=== PATIENT | male | born 1970 | race Caucasian/White ===

== ENCOUNTER → 2019-03-08 | Day surgery (SDC) | payer OTHER ==
--- NOTE | 2019-03-09 16:48 | PATH ---
Cytology Non-Gynecological Report Patient Name: JOSHUA LACKEY [facility]. Rec. #: [id number] /Age/Gender: 1970 (Age: 48) / M Account: [id number] Location: RADIOLOGY INTER Taken: 03/08/2019 Received: 03/08/2019 Reported: 03/09/2019 Physicians: Faustina Hussein M.D. Specimen(s) Received RIGHT THYROID FNA Clinical History Right lobe, 1.0 x 1.2 x 1.1 cm Final Diagnosis THYROID, RIGHT, FINE NEEDLE ASPIRATION: SATISFACTORY FOR EVALUATION. 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 HURTHLE CELLS WITH MILD NUCLEAR ENLARGEMENT, GRANULAR CYTOPLASM, AND DISTINCT NUCLEOLI DISPERSED CLUSTERS, FRAGMENTS, AND SINGLE CELLS IN A BACKGROUND OF MINIMAL COLLOID. Comment: Although findings may represent a Hurthle cell nodule which may be seen in the setting of nodular goiter or chronic lymphocytic thyroiditis; a more significant follicular lesion cannot be completely ruled out. Suggest clinical/radiologic and serologic correlation. Electronically Signed Lyssa So M.D. Gross Description Received are eight direct smears, four of which are air-dried and Diff-Quik stained, and four of which are alcohol fixed and Pap stained. Also received is 20 ml of bloody formalin from which one cellblock is prepared.
== END | disposition home or self-care (01) ==
LOC: JRADIR 11:27
PROVIDERS: ATTEND Family Medicine
PROC: 0G9H3ZX Drainage of Right Thyroid Gland Lobe, Percutaneous Approach, Diagnostic (ICD-10-PCS; principal; 2019-03-08)
PROC: BG44ZZZ Ultrasonography of Thyroid Gland (ICD-10-PCS; 2019-03-08)
DX: E04.1 Nontoxic single thyroid nodule (principal)
CPT/HCPCS: 76942

== ENCOUNTER 2022-04-14 05:54 | Day surgery (SDC) | payer OTHER ==
[2022-04-13 11:26] VITALS: BMI 29.5
[2022-04-14 11:04] VITALS: TEMP 97.5
[2022-04-14 11:09] VITALS: RESP 18
[2022-04-14 11:46] VITALS: BP 134/90; PULSE 84
== END 2022-04-14 11:35 | disposition home or self-care (01) ==
LOC: JASU-ENDO 05:54
PROVIDERS: ATTEND Student in an Organized Health Care Education/Training Program
PROC: 0DB78ZX Excision of Stomach, Pylorus, Via Natural or Artificial Opening Endoscopic, Diagnostic (ICD-10-PCS; 2022-04-14)
PROC: 0DB68ZX Excision of Stomach, Via Natural or Artificial Opening Endoscopic, Diagnostic (ICD-10-PCS; 2022-04-14)
PROC: 0DB98ZX Excision of Duodenum, Via Natural or Artificial Opening Endoscopic, Diagnostic (ICD-10-PCS; principal; 2022-04-14 10:00)
DX: K25.9 Gastric ulcer, unspecified as acute or chronic, without hemorrhage or perforation (principal); K29.50 Unspecified chronic gastritis without bleeding; B96.81 Helicobacter pylori [H. pylori] as the cause of diseases classified elsewhere; E11.9 Type 2 diabetes mellitus without complications; Z79.4 Long term (current) use of insulin
CPT/HCPCS: 82962; 88305-TC; 88341-TC; 88342-TC